=== PATIENT | female | born 1965 | race African-American/Black ===

== ENCOUNTER 2023-09-01 18:37 | Emergency (ER) | payer BC ==
[~2023-09-01] VITALS: Ht 165.1 cm; Wt 91.0 kg
[2023-09-01 18:39] VITALS: BP 139/84; PULSE 90; RESP 16; O2SAT 98
[2023-09-01 18:45] VITALS: TEMP 98.1
[2023-09-01] MEDS: ACETAMINOPHEN 325MG TABLET PO ONE (18:45)
[2023-09-01] MEDS ORDERED: IBUP-2028 PO (20:25)
[2023-09-01] MEDS: OXYCODONE HCL/ACETAMINOPHEN 5/325MG TABLET PO ONE (20:30)
== END 2023-09-01 22:13 | disposition home or self-care (01) ==
LOC: ER 18:37
DX: S82.201A Unspecified fracture of shaft of right tibia, initial encounter for closed fracture (principal); E11.9 Type 2 diabetes mellitus without complications; E78.00 Pure hypercholesterolemia, unspecified; I10 Essential (primary) hypertension; W18.39XA Other fall on same level, initial encounter; Y93.89 Activity, other specified; Y92.89 Other specified places as the place of occurrence of the external cause; Y99.8 Other external cause status
CPT/HCPCS: 73560; 29505; 99283; Z7610